=== PATIENT | female | born 1965 | race Caucasian/White ===

== ENCOUNTER → 2020-12-31 00:31 | Outpatient (CLI) | payer OTHER, SELFPAY | PROVIDERS: PCP Family Medicine; Visit Provider Internal Medicine Cardiovascular Disease | DX: Z01.812 Encounter for preprocedural laboratory examination (principal); Z20.822 Contact with and (suspected) exposure to COVID-19 | CPT/HCPCS: 99199; C9803; U0003; U0005 ==

== ENCOUNTER 2021-01-03 01:21 | Day surgery (SDC) | payer OTHER, SELFPAY ==
[2021-01-02 13:14] VITALS: BMI 40.4
[2021-01-03] VITALS (10 sets, daily range): BP systolic 120–209; BP diastolic 64–101; PULSE 68–112; RESP 12–17; TEMP 36.1–36.7; O2SAT 92–99; BMI 41.5
[2021-01-03 07:58] LABS: EDCOVIDSCREEN Negative (Negative)
--- NOTE | 2021-01-03 08:48 | WPDMODSED ---
Moderate Sedation Note-Pt Data Patient Data Diagnosis: Aortic stenosis Present Complaint: Aortic stenosis Procedure to be performed/Plan: Multiplanar transesophageal echocardiography with pulse wave and color flow Doppler Agitated saline study Moderate sedation Allergies Allergy/AdvReac Type Severity Reaction Status Date / Time No Known Allergies Allergy Mild Verified 01/03/21 08:28 Home Medications Medication Instructions Recorded Confirmed Type pen needle, diabetic 32 gauge x #100 each 01/09/20 Rx 5/32 dicyclomine 20 mg tablet 20 mg PO TID PRN #60 tablet 06/29/20 01/02/21 Rx cholestyramine-aspartame 4 gram 4 g PO DAILY #60 ea 07/22/20 01/02/21 Rx oral powder for susp in a packet blood sugar diagnostic #100 ea 09/28/20 09/28/20 Rx dulaglutide 0.75 mg/0.5 mL 0.75 mg SUBCUT WEEKLY #2 ml 12/07/20 01/02/21 Rx subcutaneous pen injector ferrous sulfate 325 mg (65 mg 325 mg PO .EVERY OTHER DAY tablet 12/07/20 01/02/21 History iron) tablet,delayed release gabapentin 300 mg capsule 300 mg PO DAILY #30 cap 12/24/20 01/02/21 Rx buspirone 5 mg tablet 5 mg PO TID PRN #45 tablet 01/01/21 01/02/21 Rx cetirizine [Zyrtec] 10 mg PO DAILY 01/02/21 01/02/21 History escitalopram oxalate 20 mg tablet 20 mg PO DAILY #90 tablet 01/02/21 01/02/21 Rx insulin glargine 100 unit/mL (3 70 unit SUB-Q QPM #72 ml 01/02/21 01/02/21 Rx mL) subcutaneous pen lansoprazole [Prevacid] 15 mg PO DAILY 01/02/21 01/02/21 History losartan 100 mg tablet 100 mg PO DAILY #90 tablet 01/02/21 01/02/21 Rx metoprolol succinate 25 mg 50 mg PO .HS #180 tablet 01/02/21 01/02/21 Rx tablet,extended release 24 hr Sedation/Anesthesia: No previous sedation/anesthesia problems (including family history). [facility] Past Medical History Medical History Anemia Diabetes HLD (hyperlipidemia) Hypertension Normal colonoscopy (~2013) Surgical History Surgical History H/O section Family History Family History Mother Hypertension Family history of coronary artery disease Father Family history of diabetes mellitus in first degree relative Social History Social History Smoking status: Never smoker Second hand tobacco smoke exposure: No Alcohol intake: never Substance use: never Substance use type: does not use Living arrangements: with family Gender identity (if verbalized by the patient): Female Spiritual care concerns: No Mod Sed Physical Exam Physical Exam Pre Procedural Exam: Normal: Appearance, Eyes, Ears, Nose, Neck, Throat, Airway, Lungs, Heart Size, Heart Rate, Heart Rhythm, Neuro Exam, Extremities and Skin Hours since solid foods: 12 Hours since liquid intake: 12 Internal Medicine - PN: Obj Da Vital Signs Vital Signs: Vital Signs - 24 hr 01/03/21 08:20 Temperature 36.7 C Pulse Rate 76 Respiratory Rate 16 Blood Pressure 160/87 H Pulse Oximetry 97 Labs Labs: Laboratory Results - last 24 hr 01/03/21 07:35 SARS-CoV-2 IgG/IgM Ag?Rapid Negative ASA Classification/Sedation ASA Classification/Sedation ASA Class: II Emergent: No Risks: Risks, benefits and alternatives explained and patient/family accepted plan for sedation. Patient re-evaluated immediately prior to sedation.
--- NOTE | 2021-01-03 09:06 | WPDTEECHO ---
BABITA TransEsophageal Echocardiogram Date of procedure: 01/03/21 Procedure Type: 1. Multiplanar transesophageal echocardiography with color-flow and pulse wave Doppler 2. Agitated saline study 3. Moderate sedation Diagnosis: Aortic stenosis Indications: Aortic stenosis Image Quality: Good Findings: After discussing the risks, benefits alternatives of the procedure the patient agreed both via verbal and written informed consent. Risks discussed include esophageal rupture perforation, adverse reaction to anesthesia. Bleeding, pain, infection were also discussed as well as risk of . After establishing continuous ekg monitor tech, pulse oxygenation and serial blood pressure assessments and after time-out, procedure was initiated. Procedure start time 8:52 a.m. procedure stop time 9:05 a.m. Complications: None Blood loss: None Medications given: Hurricaine spray to hypopharynx x2 for topical anesthetic. 3 mg of Versed and 50 mcg of fentanyl given in divided dosages. 5 mg of metoprolol IV x1 also given for elevated blood pressure Medications were administered and patient was monitored by Eva Jay RN Findings: Normal left ventricular size and function ejection fraction 55-60%. Mild left atrial enlargement. Normal right ventricular size and function. Normal right atrial size. Atrial septum is intact without color flow or agitated saline evidence of shunting. Left atrial appendage is normal without thrombus. Pulsed wave Velocities of 70 centimeters/second. There is no pericardial effusion. The aortic root is normal in size. The aortic valve is trileaflet and mildly stenotic with planimetered valve area between 1.5 and 1.8 centimeter squared. There is trivial aortic insufficiency. The mitral valve is normal with [id number] mitral regurgitation. Pulmonic valve is normal with trivial pulmonic insufficiency. Tricuspid valve is normal with mild tricuspid regurgitation. Conclusions: 1. Normal left ventricular size and function ejection fraction 55-60% 2. Mild left atrial enlargement 3. Intact atrial septum with negative bubble study 4. Mild (to at most moderate) aortic stenosis 5. Mild to moderate mitral regurgitation 6. Moderate sedation
[2021-01-03 09:15] LABS: Glucose Point of Care 255 mg/dl (65-105)
--- NOTE | 2021-01-03 11:43 | SUR.PHASEII ---
1115 D/C instructions were delayed d/t IT issues with the printer, once received they were reviewed with patient and pts , questions answered, IV was d/c'd, cath intact, pressure applied. Pt transported via wheelchair to [facility] where her drove her home in a private vehicle.
== END 2021-01-03 11:20 | disposition home or self-care (01) ==
PROVIDERS: PCP Family Medicine; Visit Provider Internal Medicine Cardiovascular Disease
PROC: (CPT 93312; principal; 2021-01-03 08:30)
DX: I35.0 Nonrheumatic aortic (valve) stenosis (principal); I34.0 Nonrheumatic mitral (valve) insufficiency; D64.9 Anemia, unspecified; E11.9 Type 2 diabetes mellitus without complications; E78.5 Hyperlipidemia, unspecified; I10 Essential (primary) hypertension; Z79.4 Long term (current) use of insulin; Z20.822 Contact with and (suspected) exposure to COVID-19
CPT/HCPCS: 36415; 82948; 87426; 93312; 93320; 93325; C9803; J2250; J3010; J7040

== ENCOUNTER → 2021-01-29 01:49 | Outpatient (CLI) | payer OTHER, SELFPAY ==
[2021-01-29 17:52] LABS: SARS-CoV-2 RNA PCR Negative
== END ==
PROVIDERS: Internal Medicine Critical Care Medicine; PCP Family Medicine; Visit Provider Specialist
DX: Z01.812 Encounter for preprocedural laboratory examination (principal); Z20.822 Contact with and (suspected) exposure to COVID-19
CPT/HCPCS: C9803; U0003; U0005

== ENCOUNTER 2021-02-01 01:26 | Day surgery (SDC) | payer OTHER, SELFPAY ==
[2021-01-31 15:50] VITALS: BMI 40.7
[2021-02-01] VITALS (8 sets, daily range): BP systolic 129–153; BP diastolic 57–90; PULSE 65–82; RESP 13–16; TEMP 36.1–36.3; O2SAT 91–100; BMI 42.1
[2021-02-01 07:50] LABS: Basophils Percent Auto 0.4 % (0.2-1.2); Eosinophils Absolute Auto 0.3 K/mm3 (0-0.3); Hematocrit 40.2 % (37.0-47.0); Hemoglobin 12.9 g/dL (12.0-15.0); Immature Granulocyte Absolute 0.05 K/mm3 (0.00-0.031); Immature Granulocyte Percent A 0.5 % (0-0.5); Lymphocytes Absolute Auto 1.39 K/mm3 (0.9-3.2); Lymphocytes Percent Auto 15.3 % (18.3-44.2); Mean Corpuscular HGB Conc 32.1 g/dl (32-36); Mean Corpuscular Hemoglobin 26.7 pg (26-34); Mean Corpuscular Volume 83.1 fl (80-100); Mean Platelet Volume 11.5 fl (7.4-10.4); Monocytes Absolute Auto 0.6 K/mm3 (0.1-0.6); Monocytes Percent Auto 6.9 % (2.6-8.5); Neutrophils Absolute Auto 6.7 K/mm3 (1.3-6.7); Neutrophils Percent Auto 73.9 % (45.5-73.1); Platelet Count Result 264 k/mm3 (150-375); Red Blood Count 4.84 M/mm3 (4.2-5.4); Red Cell Distribution Width 14.5 % (11.5-14.5); White Blood Count 9.1 K/mm3 (4.5-10.0)
[2021-02-01 08:06] LABS: INR 0.9; Prothrombin Time 11.8 Seconds (11.1-14.7)
[2021-02-01 08:08] LABS: Anion Gap 9 mmol/L (8-16); Blood Urea Nitrogen 18 mg/dL (7-17); Calcium 9.2 mg/dL (8.4-10.2); Carbon Dioxide 27 mmol/L (22-30); Chloride 101 mmol/L (98-107); Estimated CRCL calculation 82 ml/min; Estimated Glomerular Filt Rate > 60; Glucose 313 mg/dL (65-110); Potassium 3.9 mmol/L (3.4-5.0); Sodium 137 mmol/L (137-145)
--- NOTE | 2021-02-01 11:04 | WPDMODSED ---
Moderate Sedation Note-Pt Data Patient Data Diagnosis: Mild aortic stenosis abnormal nuclear stress test morbid obesity ventricular arrhythmias Present Complaint: no complaints this morning Procedure to be performed/Plan: left heart catheterization Allergies Allergy/AdvReac Type Severity Reaction Status Date / Time No Known Allergies Allergy Mild Verified 01/03/21 08:28 Home Medications Medication Instructions Recorded Confirmed Type pen needle, diabetic 32 gauge x #100 each 01/09/20 Rx /32 blood sugar diagnostic #100 ea 09/28/20 09/28/20 Rx cetirizine [Zyrtec] 10 mg PO DAILY 01/02/21 01/31/21 History insulin glargine 100 unit/mL (3 70 unit SUB-Q QPM #72 ml 01/02/21 01/31/21 Rx mL) subcutaneous pen lansoprazole [Prevacid] 15 mg PO DAILY 01/02/21 01/31/21 History losartan 100 mg tablet 100 mg PO DAILY #90 tablet 01/28/21 01/31/21 Rx metoprolol succinate 25 mg 50 mg PO .HS #180 tablet 01/28/21 01/31/21 Rx tablet,extended release 24 hr buspirone 5 mg PO BID 01/31/21 01/31/21 History escitalopram oxalate 20 mg PO HS 01/31/21 01/31/21 History gabapentin 300 mg PO HS 01/31/21 01/31/21 History Current Medications: Active Medications Sodium Chloride (Normal Saline Iv) 500 mls @ 100 mls/hr IV CONT .Q5H RED Sedation/Anesthesia: No previous sedation/anesthesia problems (including family history). [facility] Past Medical History Medical History Anemia Diabetes HLD (hyperlipidemia) Hypertension Normal colonoscopy (~2013) Surgical History Surgical History H/O section Family History Family History Mother Hypertension Family history of coronary artery disease Father Family history of diabetes mellitus in first degree relative Social History Social History Smoking status: Never smoker Second hand tobacco smoke exposure: No Alcohol intake: never Substance use: never Substance use type: does not use Living arrangements: with family Gender identity (if verbalized by the patient): Female Spiritual care concerns: No Mod Sed Physical Exam Physical Exam Pre Procedural Exam: Normal: Neck, Throat, Airway, Lungs, Heart Size, Heart Rate, Heart Rhythm, Neuro Exam and Extremities and Variation: Appearance ( pleasant obese white female no apparent distress) Hours since solid foods: 12 Hours since liquid intake: 12 Mallampati Classification: class III Internal Medicine - PN: Obj Da Vital Signs Vital Signs: Vital Signs - 24 hr 02/01/21 07:40 Temperature 36.3 C L Pulse Rate 82 Respiratory Rate 16 Blood Pressure 142/90 H Pulse Oximetry 99 Meds/Results Medications: Active Medications Generic Name Dose Route Start Last Admin Trade Name Freq PRN Reason Stop Dose Admin Sodium Chloride 500 mls @ 100 mls/hr 02/01/21 07:00 Normal Saline Iv IV CONT .Q5H RED Labs CBC & Chem 7: 02/01/21 07:33 02/01/21 07:33 Labs: Laboratory Results - last 24 hr 02/01/21 02/01/21 02/01/21 07:33 07:33 07:33 WBC 9.1 RBC 4.84 Hgb 12.9 Hct 40.2 MCV 83.1 MCH 26.7 MCHC 32.1 RDW 14.5 Plt Count 264 MPV 11.5 H Immature Gran % (Auto) 0.5 Neut % (Auto) 73.9 H Lymph % (Auto) 15.3 L [place] % (Auto) 6.9 Eos % (Auto) 3.0 Baso % (Auto) 0.4 Lymph # (Auto) 1.39 [place] # (Auto) 0.6 Eos # (Auto) 0.3 Baso # (Auto) 0.0 Abs Immat Gran (auto) 0.05 H Absolute Neuts (auto) 6.7 Absolute Nucleated RBC 0.0 Nucleated RBC % 0.0 PT 11.8 INR 0.9 Sodium 137 Potassium 3.9 Chloride 101 Carbon Dioxide 27 Anion Gap 9 BUN 18 H Creatinine 0.80 Estim Creat Clear Calc 82 Estimated GFR > 60 Glucose 313 H Calcium 9.2 ASA Classificati
--- NOTE | 2021-02-01 11:51 | WPDCARDPROC ---
Cardiac Cath Procedure Note Date of procedure:: 02/01/21 Performing physician:: Lew Rainey MD Indication:: abnormal nuclear stress test ventricular arrhythmias morbid obesity mild aortic valve stenosis Brief clinical history:: this is a 56-year-old woman recently found to have a cardiac murmur she has been found to have modest aortic valve stenosis. Because of an abnormal nuclear stress test geography has been recommended. She is not reporting any ischemic chest pain Procedure Procedure performed:: a left heart catheterization with left ventriculography and coronary angiography Angio-Seal to right femoral artery Sedation/Medication given:: fentanyl 50 mg Versed 2 mg case start time 11:20 a.m. a case end time 11:47 a.m. sedation provided by Chelly Rios RN, trained observer Access site:: right femoral artery Estimated blood loss:: 20 cc Procedure note:: patient was brought to the cardiac catheterization lab in the postabsorptive state. The right femoral triangle was prepared and draped in the normal fashion. Anesthesia was provided with 1% lidocaine infiltrated locally. Modified Seldinger technique was used to puncture the femoral artery and placed a 5 Belgian vascular sheath. After this left heart catheterization was carried out. I used a 5 Belgian angled pigtail catheter to measure left-sided hemodynamics and inject the left ventriculogram in the PRATT projection. After this a 5 Belgian FL4 catheter was used to engage and inject the left coronary artery in multiple projections. A 5 Belgian JR4 catheter was used to engage and inject the right coronary artery in orthogonal projections. After this the cineangiograms were reviewed and the case was terminated. An angiogram was done of the femoral artery through the sheath after which a 6 Belgian Angio-Seal device was deployed at the puncture site. Hemostasis was not satisfactory as there was mild back bleeding and manual pressure will be held at this point. the patient otherwise had no procedure complications and left the lab animal technician in stable condition with no evidence of a groin hematoma. Findings:: Hemodynamics: Central aortic pressure is 136 over 76 left ventricle 157 over 0 end-diastolic 18. There is approximately 20 mm peak gradient across the aortic valve. Left ventricle: The LV is normal in size all segments appear to contract appropriately the global ejection fraction is 55% by visual estimation the left main coronary artery is widely patent the left anterior descending is a large caliber artery extending down to around the apex the LAD is smooth and angiographically normal in appearance the circumflex is a very large caliber artery giving rise to the marginal branches and the posterolateral circulation. The circumflex is smooth and angiographically normal in appearance the right coronary artery is large in caliber and is dominant to the posterior circulation giving rise to the RPDA but no RPL branches. The right coronary artery is also smooth and angiographically normal in appearance Conclusion:: 1. right coronary dominant circulation with the RCA ending in the RPDA but no angiographic evidence of coronary artery disease. 2. Normal left ventricular systolic function 3. suboptimal hemostatic result following Angio-Seal deployment 4. false-positive stress test presumably because of obesity Lew Rainey MD FACC
--- NOTE | 2021-02-01 13:54 | SUR.PHASEII ---
Patient ambulated up to chair after using the bathroom, no signs of bleeding or hematoma. Will continue to monitor.
== END 2021-02-01 16:08 | disposition home or self-care (01) ==
PROVIDERS: PCP Family Medicine; Visit Provider Specialist
PROC: 4A023N7 Measurement of Cardiac Sampling and Pressure, Left Heart, Percutaneous Approach (ICD-10-PCS; CPT 93452; principal; 2021-02-01 08:30)
DX: I35.0 Nonrheumatic aortic (valve) stenosis (principal); I49.9 Cardiac arrhythmia, unspecified; R94.39 Abnormal result of other cardiovascular function study; D64.9 Anemia, unspecified; E11.9 Type 2 diabetes mellitus without complications; E78.5 Hyperlipidemia, unspecified; I10 Essential (primary) hypertension; E66.01 Morbid (severe) obesity due to excess calories; Z68.41 Body mass index [BMI] 40.0-44.9, adult
CPT/HCPCS: 36415; 80048; 85025; 85610; 93458; C1760; C1769; C1887; C1894; C9803; G0269; J1644; J2250; J3010; J7040; U0003; U0005

== ENCOUNTER → 2021-02-04 02:25 | Outpatient (CLI) | payer OTHER, SELFPAY ==
[2021-02-05 15:38] LABS: SARS-CoV-2 RNA PCR Negative
== END ==
PROVIDERS: PCP Family Medicine; Visit Provider Internal Medicine Critical Care Medicine
DX: Z01.812 Encounter for preprocedural laboratory examination (principal); Z20.822 Contact with and (suspected) exposure to COVID-19
CPT/HCPCS: C9803; U0003; U0005

== ENCOUNTER 2021-02-15 08:37 | Outpatient (CLI) | payer OTHER, SELFPAY ==
--- NOTE | 2021-03-13 16:15 | WPDHOMESLEEP ---
Sleep Study - Home Unattended Date of Study: 02/15/21 Ordering Provider: Neda Wright MD Interpreting Provider: Yuliet Manjarrez MD Home Sleep Study Type: Watch PAT Height: 1.63 m Weight: 106.594 kg Body Mass Index: 40.3 Neck Circumference (inches): 15.25 [place]: 10 Reason for Sleep Study Hypersomnolence Sleep History Taylor Quintero is a 56 year old female with excessive daytime sleepiness. She occasionally snores. She had a BABITA last December with observations that she was not breathing properly. There is a family history of snoring in her mother. she does not awaken from sleep feeling short of breath or awaken at night with heartburn, belching or coughing. Rarely is her snoring loud enough that others notice. She frequently has trouble sleeping with a cold. she really has breathing problems at night observed by others and she rarely sweats excessively at night. She occasionally notices her heart pounding or beating irregularly at night. She occasionally falls asleep during the day but never involuntarily or while driving. She does not have loss of muscle tone with strong emotion. 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 she does not feel paralyzed on waking or falling asleep, and rarely has vivid dreamlike scenes upon awakening or falling asleep. she does not feel afraid to go to sleep. She rarely has nightmares. She frequently remembers her dreams. She does not have racing thoughts. She denies feelings of sadness, depression and rarely has anxiety. She does not have muscular tension. She rarely notices parts of her body jerking. She does not kick at night. She frequently has crawling aching feelings in her legs. She occasionally has leg pain during the night. She denies morning jaw pain. She rarely grinds her teeth during sleep. She is not bothered by pain during the day or awakened by pain at night. She does not wake up feeling stiff in the morning, does not wake up with sore achy muscles and rarely wakes up with pain in the neck and spine. She has headaches and palpitations Normal bedtime is 11:00 p.m. falling asleep quickly waking twice at night to urinate and is able to return to sleep within 5 minutes. She wakes the morning at 6:00 a.m.. On the weekends she goes to bed possibly later and wakes by 8:30 a.m.. She takes naps in the afternoon or evening. A short nap is not refreshing. She feels better in the afternoon compared to the morning. Habits: Never smoked. Caffeine 3 per day. No alcohol or recreational drugs. PMF Past Medical History Medical History (Updated 03/13/21 @ 17:21 by Yuliet Manjarrez MD) Anemia Chronic diarrhea Diabetes Fatigue HLD (hyperlipidemia) Hypertension Normal colonoscopy (~2013) Obesity, morbid, BMI 40.0-49.9 Ventricular tachycardia Surgical History Surgical History H/O section Family History Family History Mother Hypertension Family history of coronary artery disease Father Family history of diabetes mellitus in first degree relative Social History Social History Second hand tobacco smoke exposure: No Alcohol intake: never Substance use: never Substance use type: does not use Gender identity (if verbalized by the patient): Female Spiritual care concerns: No Medications Home Medications Medication Instructions Recorded Confirmed Type pen needle, diabetic 32 gauge x #100 each 01/09/20 Rx blood sugar diagnostic #100 ea 09/28/20 09/28/20 Rx cetirizine [Zyrtec] 10 mg PO DAILY 01/02/21 01/31/21 History insulin glargine 100 unit/mL (3 70 unit SUB-Q QPM #72 ml 01/02/21 01/31/21 Rx mL) subcutaneous pen lansoprazole [Prevacid] 15 mg PO DAILY 01/02/21 01/31/21 History losartan 100 mg tablet 100 mg PO DAILY #90 tablet 07
[2021-03-13 16:19] VITALS: BMI 40.3
== END 2021-02-18 11:46 | disposition home or self-care (01) ==
LOC: ANHCSM 08:39
PROVIDERS: PCP Family Medicine; Visit Provider Family Medicine
DX: G47.33 Obstructive sleep apnea (adult) (pediatric) (principal)
CPT/HCPCS: 95800

== ENCOUNTER 2021-05-24 06:35 | Outpatient (CLI) | payer OTHER, SELFPAY ==
--- NOTE | 2021-06-17 17:27 | WPDSLEEPSTUD ---
Sleep Study Date of Study: 05/24/21 Ordering Provider: Neda Wright MD Interpreting Physician: Yuliet Manjarrez MD Sleep Study Type: CPAP Titration Height: 1.63 m Weight: 106.594 kg Body Mass Index: 40.3 Neck Circumference (inches): 15 [place]: 11 Reason for Sleep Study * Feb 15, 2021 WatchPat Home Sleep Test with an apnea hypopnea index o 21.1 and a central apnea index of 9.2, severe desaturation to 78%, presents for a CPAP titration. Sleep History Taylor Quintero is a 56 year old female with excessive daytime sleepiness. She occasionally snores. She had a BABITA last December with observations that she was not breathing properly. There is a family history of snoring in her mother. She does not awaken from sleep feeling short of breath or awaken at night with heartburn, belching or coughing. Rarely is her snoring loud enough that others notice. She frequently has trouble sleeping with a cold. She rarely has breathing problems at night observed by others and she rarely sweats excessively at night. She occasionally notices her heart pounding or beating irregularly at night. She occasionally falls asleep during the day but never involuntarily or while driving. She does not have loss of muscle tone with strong emotion. 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 She does not feel paralyzed on waking or falling asleep, and rarely has vivid dreamlike scenes upon awakening or falling asleep. she does not feel afraid to go to sleep. She rarely has nightmares. She frequently remembers her dreams. She does not have racing thoughts. She denies feelings of sadness, depression and rarely has anxiety. She does not have muscular tension. She rarely notices parts of her body jerking. She does not kick at night. She frequently has crawling aching feelings in her legs. She occasionally has leg pain during the night. She denies morning jaw pain. She rarely grinds her teeth during sleep. She is not bothered by pain during the day or awakened by pain at night. She does not wake up feeling stiff in the morning, does not wake up with sore achy muscles and rarely wakes up with pain in the neck and spine. She has headaches and palpitations Normal bedtime is 11:00 p.m. falling asleep quickly waking twice at night to urinate and is able to return to sleep within 5 minutes. She wakes the morning at 6:00 a.m.. On the weekends she goes to bed possibly later and wakes by 8:30 a.m.. She takes naps in the afternoon or evening. A short nap is not refreshing. She feels better in the afternoon compared to the morning. Habits: Never smoked. Caffeine 3 per day. No alcohol or recreational drugs. [facility] Past Medical History Medical History Anemia Chronic diarrhea Diabetes Fatigue HLD (hyperlipidemia) Hypertension Normal colonoscopy (~2013) Obesity, morbid, BMI 40.0-49.9 Ventricular tachycardia Surgical History Surgical History H/O section Family History Family History Mother Hypertension Family history of coronary artery disease Father Family history of diabetes mellitus in first degree relative Social History Social History Second hand tobacco smoke exposure: No Alcohol intake: never Substance use: never Substance use type: does not use Gender identity (if verbalized by the patient): Female Spiritual care concerns: No Medications Home Medications Medication Instructions Recorded Confirmed Type pen needle, diabetic 32 gauge x #100 each 01/09/20 06/14/21 Rx 5/32 blood sugar diagnostic #100 ea 09/28/20 06/14/21 Rx cetirizine [Zyrtec] 10 mg PO DAILY 01/02/21 06/14/21 History lansoprazole [Prevacid] 15 mg PO DAILY 01/02/21 06/14/21 History buspirone 5 mg
[2021-06-17 19:43] VITALS: BMI 40.3
== END 2021-05-25 07:27 | disposition home or self-care (01) ==
LOC: ANHCSM 06:35
PROVIDERS: PCP Family Medicine; Visit Provider Family Medicine
DX: G47.33 Obstructive sleep apnea (adult) (pediatric) (principal)
CPT/HCPCS: 95811

== ENCOUNTER 2021-11-07 11:16 | Outpatient (CLI) | payer OTHER, SELFPAY ==
[2021-11-07 16:52] LABS: Alanine Aminotransferase 27 U/L (4-35); Albumin Level 4.4 g/dL (3.5-5.1); Alkaline Phosphatase 111 U/L (38-126); Anion Gap 7 mmol/L (8-16); Aspartate Amino Transferase 76 U/L (14-36); Bilirubin,Total 0.3 mg/dL (0.2-1.3); Blood Urea Nitrogen 12 mg/dL (7-17); Carbon Dioxide 31 mmol/L (22-30); Chloride 100 mmol/L (98-107); Cholesterol 197 mg/dL (0-200); Estimated Glomerular Filt Rate > 60; Glucose 171 mg/dL (65-110); HDL Direct 44 mg/dL; Potassium 4.1 mmol/L (3.4-5.0); Sodium 138 mmol/L (137-145); Triglycerides 172 mg/dL (<150)
[2021-11-07 17:03] LABS: LDL Cholesterol Direct 104 mg/dL
[2021-11-07 19:54] LABS: Creatinine Urine 246.8 mg/dL
[2021-11-07 20:33] LABS: MALB Creatinine Ratio 266.1 mg/g (0-30); Microalbumin Urine Random 656.8 mg/L (0-16.7)
== END 2021-11-07 11:17 | disposition home or self-care (01) ==
LOC: ANHWCLAB 11:20
PROVIDERS: PCP Family Medicine; Visit Provider Internal Medicine Endocrinology, Diabetes & Metabolism
DX: E11.29 Type 2 diabetes mellitus with other diabetic kidney complication (principal); E78.5 Hyperlipidemia, unspecified; R80.9 Proteinuria, unspecified
CPT/HCPCS: 36415; 80053; 80061; 82043; 84443

== ENCOUNTER 2022-04-12 02:06 | Emergency (ER) | payer OTHER, SELFPAY ==
--- NOTE | ~2022-04-12 | XR_ITS ---
EXAMINATION: XR knee RT 3V DATE: 04/12/2022 02:55 INDICATION: Right knee pain. TECHNIQUE: 3 views of right knee were obtained. COMPARISON: Right knee radiographs 05/27/2012 FINDINGS: Bone alignment is normal. No fracture. There is moderate osteoarthritis of medial compartme nt and mild osteoarthritis of lateral and patellofemoral compartments. There is a moderate-sized knee joint effusion. IMPRESSION: 1. Moderate right knee osteoarthritis. 2. Moderate-sized right knee joint effusion. Reviewed, dictated and finalized at location A.
--- NOTE | ~2022-04-12 | XR_ITS ---
EXAMINATION: XR wrist LT min 3V DATE: 04/12/2022 02:55 INDICATION: Left wrist pain. Fall. TECHNIQUE: 4 views of left wrist were obtained. COMPARISON: None. FINDINGS: There is a fracture of palmar aspect of distal radius with involvement of the distal articu lar surface. The volar fracture fragment demonstrates 1 mm volar displacement. There is mild osteoart hritis of triscaphe joint and first carpometacarpal joint. IMPRESSION: 1. Distal radius fracture. Reviewed, dictated and finalized at location A. IMPRESSION: 1. Distal radius fracture.
[2022-04-12 02:13] VITALS: BP 166/84; PULSE 95; RESP 16; TEMP 36.1; O2SAT 100
--- NOTE | 2022-04-12 02:22 | ED.GENADULT ---
HPI - General Adult General Chief complaint: Extremity Injury, Upper Stated complaint: fall with L wrist pain, hand numbness Time Seen by Provider: 04/12/22 02:16 History of Present Illness HPI narrative: Patient is a 57-year-old female here for evaluation of left wrist and right knee pain after a fall today. Patient states that she was walking in the dark when she accidentally tripped on a rock, falling forward onto outstretched hands and on her right knee. She has been ambulatory since the accident but just notes that her knee is sore. She has noted pain in the left wrist and also some tingling sensation in her fingers, although she has been able to move the hand and fingers without issue. Has not taken any pain medicine prior to arrival. States that she was in her usual state of health prior to the fall and denies any preceding dizziness, lightheadedness, headaches, visual changes, chest pain or shortness of breath. Related Data Home Medications Medication Instructions Recorded Confirmed cetirizine 10 mg capsule (Zyrtec) 10 mg PO DAILY 01/02/21 04/15/22 lansoprazole 15 mg capsule,delayed 15 mg PO DAILY 01/02/21 04/15/22 release (Prevacid) amlodipine 5 mg tablet 5 mg PO DAILY 02/11/21 04/15/22 aspirin 81 mg tablet,delayed 81 mg PO DAILY 02/11/21 04/15/22 release (Adult Low Dose Aspirin) omega-3 fatty acids 1,000 mg 2,000 mg PO DAILY 02/11/21 04/15/22 capsule (Fish Oil Concentrate) Allergies Allergy/AdvReac Type Severity Reaction Status Date / Time No Known Allergies Allergy Mild Verified 04/15/22 12:48 Review of Systems Review of Systems: Gen: Denies fevers or chills Eyes: Denies eye pain or visual change ENT: Denies congestion Respiratory: Denies shortness of breath or cough CV: Denies chest pain or palpitations GI: Denies abdominal pain nausea, emesis or diarrhea denies burning, urgency, frequency or hematuria Musculoskeletal: Reports left wrist and right knee pain. Neuro: Denies numbness, tingling, weakness or focal weakness Skin: Denies rash Except as documented, all other systems reviewed and negative [facility] Past Medical History Medical History (Updated 04/15/22 @ 17:50 by Sourav Burgos MD) Anemia Chronic diarrhea Dermatofibroma Diabetes Distal radius fracture, left Fatigue HLD (hyperlipidemia) Hypertension Normal colonoscopy (~2013) Obesity, morbid, BMI 40.0-49.9 Ventricular tachycardia Surgical History Surgical History H/O section Family History Family History Mother Hypertension Family history of coronary artery disease Father Family history of diabetes mellitus in first degree relative Social History Social History Smoking status: Never smoker Second hand tobacco smoke exposure: No Alcohol intake: never Substance use: never Substance use type: does not use Gender identity (if verbalized by the patient): Female Spiritual care concerns: No Exam Narrative: APPEARANCE: Well appearing, no pain in distress, well-nourished. Head: Normocephalic and atraumatic. EYES: PERRLA/EOMI, conjunctivae clear NOSE: No nasal drainage EARS: External ear normal in appearance THROAT: Oropharynx is clear. Mucous membranes are moist. NECK: Supple. No adenopathy, no masses. RESPIRATORY: Airway patent, respirations nonlabored. Clear to auscultation bilaterally, no rales, rhonchi, wheezing. CARDIOVASCULAR: 2+ radial pulses bilaterally. Brisk capillary refill. Systolic ejection murmur heard. Regular rate and rhythm without rubs, or gallops. ABDOMINAL: Normoactive bowel sounds. Soft, nontender, nondistended. No rebound tenderness or guarding. MUSCULOSKELETAL: Patient has a contusion over the medial aspect of the right knee. She has bony tenderness palpation on the right patella. She is full range of motion i
--- NOTE | 2022-04-12 02:46 | PC.NURSE ---
Patient in xray at this time.
[2022-04-12] MEDS: ACETAMINOPHEN 325 MG TABLET 650 MG PO (02:53)
[2022-04-12] MEDS: IBUPROFEN 600 MG TABLET PO (02:53)
== END 2022-04-12 03:36 | disposition home or self-care (01) ==
PROVIDERS: Emergency Provider Emergency Medicine; PCP Family Medicine
DX: S52.502A Unspecified fracture of the lower end of left radius, initial encounter for closed fracture (principal); S89.91XA Unspecified injury of right lower leg, initial encounter; E11.9 Type 2 diabetes mellitus without complications; E78.5 Hyperlipidemia, unspecified; I10 Essential (primary) hypertension; Z86.2 Personal history of diseases of the blood and blood-forming organs and certain disorders involving the immune mechanism; E66.01 Morbid (severe) obesity due to excess calories; Z68.35 Body mass index [BMI] 35.0-35.9, adult; Z79.82 Long term (current) use of aspirin; Z79.85 Long-term (current) use of injectable non-insulin antidiabetic drugs; Z79.4 Long term (current) use of insulin; W18.09XA Striking against other object with subsequent fall, initial encounter; Z79.84 Long term (current) use of oral hypoglycemic drugs
CPT/HCPCS: 29125; 73110; 73562; 99284; A9270

== ENCOUNTER 2022-09-29 09:47 | Outpatient (CLI) | payer OTHER, SELFPAY ==
[2022-09-29 17:15] LABS: Alanine Aminotransferase 28 U/L (6-35); Albumin Level 4.4 g/dL (3.5-5.1); Alkaline Phosphatase 120 U/L (38-126); Anion Gap 7 mmol/L (8-16); Aspartate Amino Transferase 49 U/L (14-36); Bilirubin,Total 0.6 mg/dL (0.2-1.3); Blood Urea Nitrogen 21 mg/dL (7-17); Calcium 9.3 mg/dL (8.4-10.2); Carbon Dioxide 28 mmol/L (22-30); Chloride 102 mmol/L (98-107); Cholesterol 211 mg/dL (0-200); Estimated Glomerular Filt Rate > 60; Glucose 161 mg/dL (65-110); HDL Direct 45 mg/dL; Potassium 4.5 mmol/L (3.4-5.0); Sodium 137 mmol/L (137-145); Triglycerides 204 mg/dL (<150)
[2022-09-29 17:26] LABS: LDL Cholesterol Direct 112 mg/dL
[2022-09-29 17:37] LABS: Creatinine Urine 85.6 mg/dL
[2022-09-29 17:40] LABS: MALB Creatinine Ratio 144.4 mg/g (0-30); Microalbumin Urine Random 123.6 mg/L (0-16.7)
== END 2022-09-29 09:48 | disposition home or self-care (01) ==
LOC: ANHWCLAB 09:48
PROVIDERS: PCP Family Medicine; Visit Provider Internal Medicine Endocrinology, Diabetes & Metabolism
DX: R80.9 Proteinuria, unspecified (principal); E78.5 Hyperlipidemia, unspecified; E11.29 Type 2 diabetes mellitus with other diabetic kidney complication; E11.65 Type 2 diabetes mellitus with hyperglycemia; Z79.4 Long term (current) use of insulin; Z71.3 Dietary counseling and surveillance
CPT/HCPCS: 36415; 80053; 80061; 82043; 82607; 84443

== ENCOUNTER 2023-10-08 11:27 | Outpatient (CLI) | payer OTHER, SELFPAY ==
--- NOTE | ~2023-10-08 | XR_ITS ---
EXAM: XR wrist RT min 3V DATE: 10/08/2023 11:45 HISTORY: S69.90XA - Unspecified injury of unspecified wrist, hand ... . COMPARISON: None available. FINDINGS: Normal mineralization. No fracture or dislocation. No lytic or blastic lesion. Mild scatte red degenerative change. Subchondral cysts in the lunate. No erosion or periosteal change. Soft tissu es within normal limits. IMPRESSION: No acute osseous finding in the right wrist. Reviewed, dictated and finalized at location K.
== END 2023-10-08 11:28 | disposition home or self-care (01) ==
PROVIDERS: PCP Family Medicine; Visit Provider Physician Assistant
DX: S69.90XA Unspecified injury of unspecified wrist, hand and finger(s), initial encounter (principal)
CPT/HCPCS: 73110

== ENCOUNTER 2024-10-20 00:51 | Day surgery (SDC) | payer OTHER, SELFPAY ==
[2024-10-18 14:08] VITALS: BMI 37.4
--- OUTSIDE RECORDS SUMMARY | 2024-10-20 00:54 | XMS_ITS | Referral Summary ---
Author Organization [facility] Address [address] [place] [id number] Care Team Providers Care Peoplesoft Analyst Name Role Phone Neda Wright MD Primary Care Provider [phone] Encounters Date Type Department Care Team Description 09/21/2024 9:30 AM CDT Office Visit [facility] Cardiology [address] [facility] [address] [place] [address] Murphy Jin MD Hypertension associated with diabetes (HCC) (Primary Dx); Hyperlipidemia associated with type 2 diabetes mellitus (HCC); Pulmonary hypertension (HCC); Nonrheumatic aortic valve stenosis; Severe obesity (HCC) from Last 3 Months Allergies No known active allergies Medications gabapentin (NEURONTIN) 300 mg capsule Take by mouth daily 1 Active escitalopram (LEXAPRO) 20 mg tablet 1 Active losartan (COZAAR) 100 mg tablet Take 0.5 tablets (50 mg total) by mouth 2 (two) times a day 1 Active metoprolol XL (TOPROL-XL) 25 mg extended release tablet 2 tablets (50 mg total) 1 Active cetirizine (ZyrTEC) 10 mg tablet Take 1 tablet (10 mg total) by mouth daily Active lansoprazole (PREVACID) 15 mg capsule Take 1 capsule (15 mg total) by mouth daily Active omega-3 fatty acids 1,000 mg capsule Take 2,000 mcg by mouth Active aspirin 81 mg enteric coated tabletIndicatio ns:Dyspnea, unspecified type Take 1 tablet (81 mg total) by mouth daily 30 tablet 11 1 Active Ozempic 1 mg/dose (4 mg/3 mL) pen injector injection 2 Active TOUJEO MAX 300 unit/mL (3 mL) pen for injection 2 Active Farxiga 10 mg tablet Take 1 tablet (10 mg total) by mouth daily 4 Active ezetimibe-atorv astatin 10-10 mg tablet Take 1 tablet by mouth daily Active atorvastatin (LIPITOR) 40 mg tabletIndicatio ns:Hyperlipidem ia associated with type 2 diabetes mellitus (HCC) TAKE 1 TABLET DAILY 90 tablet 3 5 Active amLODIPine (NORVASC) 10 mg tabletIndicatio ns:Hypertension associated with diabetes (HCC) TAKE 1 TABLET DAILY 90 tablet 3 5 Active amLODIPine (NORVASC) 10 mg tabletIndicatio ns:Hypertension associated with diabetes (HCC) TAKE 1 TABLET DAILY 90 tablet 2 4 025 Discontinued Active Problems Problem Noted Date Diagnosed Date Severe obesity 09/21/2024 Morbid (severe) obesity due to excess calories 0 08/17/2023 JACOB (obstructive sleep apnea) 06/13/2021 Pulmonary hypertension 12/21/2020 Hyperlipidemia associated with type 2 diabetes m ellitus 12/21/2020 Hypertension associated with diabetes 12/21/2020 Lipid screening 12/21/2020 VT (ventricular tachycardia) 12/21/2020 Dyspnea 12/21/2020 History of COVID-19 12/21/2020 Nonrheumatic aortic valve stenosis 12/21/2020 Resolved Problems Problem Noted Date Diagnosed Date Resolved Date Morbid obesity with BMI of 40.0-44.9, adult 12/21/2020 02/09/2023 Social History Tobacco Use Types Packs/Day Years Used Date Smoking Tobacco: Never Smokeless Tobacco: Never Tobacco Cessation:Counseling Given: Not Answered Comments Unknown Sex and Gender Information Value Date Recorded Sex Assigned at Not on file 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 Gender Identity Not on file Sexual Orientation Not on file Last Filed Vital Signs Vital Sign Reading Time Taken Comments Blood Pressure 120/82 09/21/2024 9:25 AM CDT Pulse 78 09/21/2024 9:25 AM CDT Temperature - - Respiratory Rate 15 12/21/2020 2:34 PM CDT Oxygen Saturation 97% 09/21/2024 9:25 AM CDT Inhaled Oxygen Concentration - - Weight 102.1 kg (225 lb) 09/21/2024 9:25 AM CDT Height 162.6 cm (5' 4 ) 09/21/2024 9:25 AM CDT Body Mass Index 38.62 09/21/2024 9:25 AM CDT Plan of Treatment Not on file Procedures Procedure Name Priority Date/Time Associated Diagnosis Comments POCT LIPID PANEL Routine 09/21/2024 8:28 AM CDT Hyperlipidemia associated with type 2 diabetes mellitus (HCC) EGFR Routine 12/21/2020 4:26 PM CDT Dyspnea, unspecified type VT (ventricular tachycardia) (HCC) from Last 3 Months or Most Recently Relevant to Health Maintenance Results * POCT lipid panel (09/21/2024 8:28 AM CDT) Cholesterol, POC 150 mg/dL HDL, POC 48 mg/dL Triglycerides, POC 208 mg/dL LDL Cholesterol POC 60 mg/dL Chol/HDL Ratio, POC 1.2 Non-HDL Cholesterol, POC 101 mg/dL Cholesterol Total, POC 150 mg/dL Capillary blood 09/21/2024 8 :28 AM CDT Murphy Jin MD POINT OF CARE TEST ORDERA BLES Final Result * eGFR (12/21/2020 4:26 PM CDT) eGFR 87 mL/min/1.7 3 m2 [facility] Comment: Interpretive Data Reference Interval Normal >/= 90 mL/min/1.73m2 Mildly decreased* 60 - 89 mL/min/1.73m2 Mildly to moderately decreased 45 - 59 mL/min/1.73m2 Moderately to severely decreased 30 - 44 mL/min/1.73m2 Severely decreased 15 - 29 mL/min/1.73m2 Kidney Failure < 15 mL/min/1.73m2 *Relative to young adult level Estimated glomerular filtration rate is determined by the CKD-EPI equation recommended by the National Kidney Foundation (KDIGO 2012 Clinical Practice Guideline for the Evaluation and Management of Chronic Kidney Disease. Kidney Intnl Suppl Jul 2012;3:1). The CKD-EPI equation should not be used for patients with unstable renal function and has not been validated in children and those over 70. Current interpretive data was last reviewed 2020 Testing performed by: [facility], [facility] [address], [place] [address] Blood specimen (specimen) 12/21/2020 4:26 PM CDT 12/21/2020 4:26 PM CDT Murphy Jin MD LAB BLOOD ORDERABLES Vani tabor Result Performing Organization Address City/State/[facility] Co de Phone Number [facility] [phone] [address] Department [place] [address] from Last 3 Months or Most Recently Relevant to Health Maintenance Insurance [facility] CHOICE PLUS [facility] CHOICE PLUS Care Teams Peoplesoft Analyst Relationship Specialty Start Date End Date Neda Wright MD PCP - General Family Medicine 10/12/20
--- OUTSIDE RECORDS SUMMARY | 2024-10-20 00:54 | XMS_ITS | Clinical Summary ---
Author Organization [facility] Address [address] [place] [id number] Care Team Providers Care Legal Librarian Name Role Phone Neda Wright MD Primary Care Provider Allergies No known active allergies Medications gabapentin [...] with BMI of 40.0-44.9, adult 12/21/2020 02/09/2023 Encounters Date Type Department Care Team Description 09/21/2024 9:30 AM CDT Office Visit [facility] Cardiology [address] [facility] [address] [place] [address] Murphy Jin MD Hypertension associated with diabetes (HCC) (Primary Dx); Hyperlipidemia associated with type 2 diabetes mellitus (HCC); Pulmonary hypertension (HCC); Nonrheumatic aortic valve stenosis; Severe obesity (HCC) from Last 3 Months Surgical History Surgery Date Site/Laterality Comments SECTION 01/29/1984, 09/19/1986 Medical History Medical History Date Comments Hypertension Heart murmur Arrhythmia Hyperlipidemia Diabetes mellitus (HCC) GERD (gastroesophageal reflux disease) Anxiety Arthritis Asthma Family History Medical History Relation Name Comments Diabetes Brother 1 Wilner Kidney failure Brother 1 Wilner Coronary artery disease Brother 2 Hypertension Brother 3 Bill Coronary artery disease Father Dad Diabetes Father Dad Heart disease Father Dad Hypertension Father Dad Obesity Father Dad Diabetes Father's Sister Catina Hypertension Father's Sister Catina Obesity Father's Sister Catina Stroke Maternal Grandfather Kenny Cancer Maternal Grandmother Lesley Diabetes Mother Mom Heart disease Mother Mom Hypertension Mother Mom Kidney failure Mother Mom Obesity Mother Mom Heart disease Mother's Brother 1 Sajan Hypertension Mother's Brother 1 Sajan Heart disease Mother's Brother 2 [place] Hypertension Mother's Brother 2 [place] Diabetes Mother's Sister 1 Polina Obesity Mother's Sister 2 Alexandra Hypertension Sister Leigh Obesity Sister Leigh Relation Name Status Comments Brother 1 Wilner Alive Brother 2 Alive Brother 3 Bill Father Dad Father's Sister Catina Maternal Grandfather Kenny Maternal Grandmother Lesley Mother Mom Mother's Brother 1 Sajan Mother's Brother 2 [place] Mother's Sister 1 Polina Mother's Sister 2 Alexandra Sister Leigh Social History Tobacco Use Types Packs/Day Years Used Date Smoking Tobacco: Never Smokeless Tobacco: Never Tobacco Cessation:Counseling Given: Not Answered Comments Unknown Sex and Gender Information Value Date Recorded Sex Assigned at Not on file 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 Gender Identity Not on file Sexual Orientation Not on file Obstetrics History Last Filed Vital Signs Vital Sign Reading [...] 09/21/2024 9:25 AM CDT Plan of Treatment Health Maintenance Due Date Last Done Comments Albumin Creatinine Ratio, Urine 1963 Breast Cancer Screening-Mammogram 1963 Cervical Cancer Screening 1963 Colon Cancer Screening-Colonoscopy 1963 Depression Screening 1963 Hemoglobin A1C 1963 Hepatitis C Screening 1963 Dilated Eye Exam 1963 Foot Exam 1963 Hepatitis B Screening 1981 Regular Well Visit/Exam 18-64 1981 Pneumococcal vaccine <65 (1 of 2 - PCV) 1982 DTaP/Tdap/Td Vaccine (5 - Tdap) 06/25/1995 06/24/1995, 04/10/1975, 03/06/1971, Additional history exists Zoster Vaccine (2 of 2) 06/21/2020 04/26/2020 eGFR 12/21/2021 12/21/2020 Influenza Vaccine (Season Ended) 2025 04/26/20 20, 06/10/2019 Lipid Panel 09/21/2025 09/21/2024, 02/10, 02/09/2023, Additional history exists Procedures Procedure Name Priority Date/Time Associated Diagnosis [...] Capillary blood 09/21/2024 8 :28 AM CDT us Murphy Jin MD POINT OF CARE TEST [...] was last reviewed 2020 Testing performed by: [facility], [facility] [address], [place] [address] Blood specimen (specimen) 12/21/2020 4:26 PM CDT 12/21/2020 4:26 PM CDT Murphy Jin MD LAB BLOOD ORDERABLES Vani tabor Result Performing Organization Address City/State/[place] Co de Phone Number [facility] [phone] [address] Department [place] [address] from Last 3 Months or Most Recently Relevant to Health Maintenance Insurance [facility] [place] [address] [facility] CHO[employer] PLUS Care Teams Legal Librarian Relationship Specialty Start Date End Date Neda Wright MD PCP - General Family Medicine 10/12/20
--- OUTSIDE RECORDS SUMMARY | 2024-10-20 00:54 | XMS_ITS | Clinical Summary ---
Author Organization [facility] Address [address] [place] [id number] Care Team Providers Care Accounting Bookkeeper Name Role Phone Unavailable Primary Care Provider Unavailabl e Social History Tobacco Use Types Packs/Day Years Used Date Smoking Tobacco: Never Assessed Comments Unknown Sex and Gender Information Value Date Recorded Sex Assigned at Not on file Legal Sex Female 5:21 PM CDT Gender Identity Not on file Sexual Orientation Not on file Plan of Treatment Health Maintenance Due Date Last Done Comments Cervical Cancer Screening Pa p Smear (Age 30 to 64) Every 3 Years 1963 Colorectal Cancer Screening Colonoscopy (10 Years) 1963 Annual Physical 1966 Hepatitis C 1981 DTaP, Tdap and Td Vaccines ( 1 - Tdap) 1982 Cervical Cancer Screening Pa p with HPV Testing (Age 30 to 64) Every 5 Years 1993 Cervical Cancer Screening with HPV 1993 Mammogram Screening 2003 Zoster Vaccines (1 of 2) 2013 COVID-19 Vaccine ( - 2023-2 5 season) 2024 RSV Immunization or 60+ Years (1 - 1-dose 75+ series) 2038 Meningococcal B Vaccine Aged Out No l onger eligible based on patient's age to complete this topic Meningococcal Vaccine Aged Out No vitaliy moon eligible based on patient's age to complete this topic Pneumococcal Vaccine: Pediat rics (0 to 5 Years) and At-Risk Patients (6 to 64 Years) Aged Out No longer eligible b ased on patient's age to complete this topic RSV Immunizations Under 20 Months Aged Out No longer eligible based on patient's age to complete this topic
[2024-10-20 09:50] VITALS: BP 147/95; PULSE 98; RESP 18; TEMP 36.3; O2SAT 99
[2024-10-20 09:53] LABS: Glucose Point of Care 190 mg/dl (65-105)
[2024-10-20] MEDS: LACTATED RINGERS 1,000 ML 150 ML IV CONT (10:03)
--- NOTE | 2024-10-20 10:06 | P.PNAN_ITS ---
Anes - Initial Pre Proc Eval Procedure: Operation Date: 10/20/24 11:00 Proposed Procedures p Screening Colonoscopy - Jaden Sanchez MD Date/Time: 10/20/24 10:06 Surgeon: Jaden Sanchez MD Pre Op Diagnosis: Encounter for screening for malignant neoplasm of Patient Data Age: 59 Gender: F Height: 1.63 m Weight: 98.2 kg Last Vital Signs Temp 97.4 F L 10/20/24 09:50 Pulse 98 10/20/24 09:50 Resp 18 10/20/24 09:50 BP 147/95 H 10/20/24 09:50 Pulse Ox 99 10/20/24 09:50 O2 Del Method Room Air 10/20/24 09:50 Allergies Allergy/AdvReac Type Severity Reaction Status Date / Time No Known Allergies Allergy Mild Verified 10/20/24 09:48 Home Medications ?Medication ?Instructions ?Recorded ?Confirmed ?Type blood sugar diagnostic (Accu-Chek #100 ea 09/28/20 10/03/24 Rx Sydney Plus test strips) cetirizine 10 mg capsule (Zyrtec) 10 mg PO DAILY 01/02/21 10/20/24 History lansoprazole 15 mg capsule,delayed 15 mg PO DAILY 01/02/21 10/20/24 History release (Prevacid) amlodipine 5 mg tablet 5 mg PO DAILY 02/11/21 10/20/24 History aspirin 81 mg tablet,delayed 81 mg PO DAILY 02/11/21 10/20/24 History release (Adult Low Dose Aspirin) omega-3 fatty acids 1,000 mg 2,000 mg PO DAILY 02/11/21 10/20/24 History capsule (Fish Oil Concentrate) atorvastatin 80 mg tablet 80 mg PO DAILY #90 tabs 12/23/22 10/20/24 Rx blood-glucose,sports equipment racker,cont #1 ea 12/23/22 10/03/24 Rx (Dexcom G7 Electrical Controls Technician) losartan 100 mg tablet 100 mg PO DAILY #90 tabs 12/23/22 10/20/24 Rx escitalopram oxalate 20 mg tablet 20 mg PO HS #90 tabs 11/30/23 10/20/24 Rx blood-glucose sensor (Dexcom G7 #9 ea 01/04/24 10/03/24 Rx Sensor device) insulin glargine U-300 conc 300 See Rx Instructions .Route 02/16/24 10/20/24 Rx unit/mL (3 mL) subcutaneous pen .COMPLEX #18 mL (Toujeo Max U-300 SoloStar) albuterol sulfate 90 mcg/actuation 1 inh inhalation Q4H PRN shortness 03/01/24 10/20/24 Rx aerosol inhaler of breath or wheezing #3 device gabapentin 300 mg capsule See Rx Instructions .Route 03/31/24 10/20/24 Rx .COMPLEX #90 caps glimepiride 4 mg tablet 4 mg PO BIDWMEAL #180 tabs 05/25/24 10/20/24 Rx metoprolol succinate 25 mg 50 mg (2 x 25 mg) PO .HS #180 tabs 06/03/24 10/20/24 Rx tablet,extended release 24 hr semaglutide 2 mg/dose (8 mg/3 mL) 2 mg (0.75 mL) subcut WEEKLY #9 ea 06/29/24 10/20/24 Rx subcutaneous pen injector dapagliflozin propanediol 10 mg See Rx Instructions .Route 07/28/24 10/20/24 Rx tablet (Farxiga) .COMPLEX #90 tabs metformin 500 mg tablet,extended 1,000 mg (2 x 500 mg) PO BID #360 09/01/24 10/20/24 Rx release 24 hr (Glucophage XR) tabs finerenone 10 mg tablet (Kerendia) 10 mg PO DAILY #90 tabs 09/26/24 10/20/24 Rx ezetimibe 10 mg tablet See Rx Instructions .Route 09/28/24 10/20/24 Rx .COMPLEX #90 tabs pen needle, diabetic 32 gauge x #100 ea 09/28/24 10/03/24 Rx 5/32 Laboratory Tests 10/20/24 09:43 POC Capillary Glucose 190 H mg/dl (65-105) Patient hx anesthesia problems: none Family hx anesthesia problems: none Results Review: All pre-operative results and documents have been reviewed as part of the pre- operative evaluation. [facility] Past Medical History Medical History IBS (irritable bowel syndrome) Distal radius fracture, left Dermatofibroma Hyperlipidemia LDL goal <100 Type 2 diabetes mellitus with hyperglycemia, with long-term current use of insulin PLMD (periodic limb movement disorder) Obstructive sleep apnea (~02/2021) Obesity, morbid, BMI 40.0-49.9 Ventricular tachycardia Heart murmur Anemia Chronic diarrhea Fatigue Hypertension Surgical History Surgical History H/O section Family History Family History Mother Hypertension Family history of coronary artery disease Father Family history of diabetes mellitus in first degree relative Other Arthritis Asthma Depression Diabetes mellitus HLD (hyperlipidemia) Kidney disorder Social History Social History Smoking status: Never smoker Second hand tobacco smoke exposure: No Alcohol intake: never Substance use: never Substance use type: does not use Do You Feel Safe in your Home?: Yes Lack of Transportation: No Lack of Food: Never True Current Housing: I Have Housing Concerned About Future Housing: No Difficulty Paying Gas/Electric Bills: No Difficulty Paying for Meds: No Currently Unemployed: No Education: Master's Degree or Higher Difficulty w/ Childcare or Family Care: No Living arrangements: with family Additional living arrangements comments: with sp Occupation/Education: occupation Gender identity (if verbalized by the patient): Female Spiritual care concerns: No Anes - Eval Final PreProcedure Day of Procedure 10/20/24 10:06 Patient weight: obese Heart: regular rate and rhythm Lungs: clear to auscultation Neurological: alert and oriented Last oral intake: >/= 8 hours ASA classification: III Emergent: no Anesthetic plan: proceed Anesthesia type and monitoring: general GIVS and standard monitoring Results Review: All pre-operative results and documents have been reviewed as part of the pre- operative evaluation. Informed Consent: The patient's anesthetic plan and its attendant risks and benefits were discussed with the patient/family/POA. Questions were solicited and answers provided to the satisfaction of the patient/family/POA.
[2024-10-20 10:41] VITALS: BP 120/53; PULSE 83; RESP 18; O2SAT 97
[2024-10-20 10:51] VITALS: BP 106/58; PULSE 81; RESP 15; O2SAT 99
[2024-10-20 11:01] VITALS: BP 120/59; PULSE 79; RESP 21; O2SAT 98
--- NOTE | 2024-10-20 11:02 | SUR.PHASEII ---
blood glucose per dexcom 144
--- NOTE | 2024-10-21 16:23 | PM.IMHP ---
H&P: [facility] History of Present Illness Date/Time: 10/21/24 16:23 this note corresponds to the procedure performed on 10/20/2024. Chief Complaint: Screening colonoscopy Narrative: This is the patient's 2nd colonoscopy. There are no GI symptoms and there is no family history of colorectal cancer. Review of Systems Review of Systems: All systems reviewed & are unremarkable except as noted in HPI and below PMFSH Past Medical History Medical History IBS (irritable bowel syndrome) Distal radius fracture, left Dermatofibroma Hyperlipidemia LDL goal <100 Type 2 diabetes mellitus with hyperglycemia, with long-term current use of insulin PLMD (periodic limb movement disorder) Obstructive sleep apnea (~02/2021) Obesity, morbid, BMI 40.0-49.9 Ventricular tachycardia Heart murmur Anemia Chronic diarrhea Fatigue Hypertension Surgical History Surgical History H/O section Family History Family History Mother Hypertension Family history of coronary artery disease Father Family history of diabetes mellitus in first degree relative Other Arthritis Asthma Depression Diabetes mellitus HLD (hyperlipidemia) Kidney disorder Social History Social History Smoking status: Never smoker Second hand tobacco smoke exposure: No Alcohol intake: never Substance use: never Substance use type: does not use Do You Feel Safe in your Home?: Yes Lack of Transportation: No Lack of Food: Never True Current Housing: I Have Housing Concerned About Future Housing: No Difficulty Paying Gas/Electric Bills: No Difficulty Paying for Meds: No Currently Unemployed: No Education: Master's Degree or Higher Difficulty w/ Childcare or Family Care: No Living arrangements: with family Additional living arrangements comments: with sp Occupation/Education: occupation Gender identity (if verbalized by the patient): Female Spiritual care concerns: No Meds Home Medications and Allergies Home Medications ?Medication ?Instructions ?Recorded ?Confirmed ?Type blood sugar diagnostic (Accu-Chek #100 ea 09/28/20 10/03/24 Rx Sydney Plus test strips) cetirizine 10 mg capsule (Zyrtec) 10 mg PO DAILY 01/02/21 10/20/24 History lansoprazole 15 mg capsule,delayed 15 mg PO DAILY 01/02/21 10/20/24 History release (Prevacid) amlodipine 5 mg tablet 5 mg PO DAILY 02/11/21 10/20/24 History aspirin 81 mg tablet,delayed 81 mg PO DAILY 02/11/21 10/20/24 History release (Adult Low Dose Aspirin) omega-3 fatty acids 1,000 mg 2,000 mg PO DAILY 02/11/21 10/20/24 History capsule (Fish Oil Concentrate) atorvastatin 80 mg tablet 80 mg PO DAILY #90 tabs 12/23/22 10/20/24 Rx blood-glucose,elastic yarn twister helper,cont #1 ea 12/23/22 10/03/24 Rx (Dexcom G7 Lamp Shade Assembler) losartan 100 mg tablet 100 mg PO DAILY #90 tabs 12/23/22 10/20/24 Rx escitalopram oxalate 20 mg tablet 20 mg PO HS #90 tabs 11/30/23 10/20/24 Rx blood-glucose sensor (Dexcom G7 #9 ea 01/04/24 10/03/24 Rx Sensor device) insulin glargine U-300 conc 300 See Rx Instructions .Route 02/16/24 10/20/24 Rx unit/mL (3 mL) subcutaneous pen .COMPLEX #18 mL (Toujeo Max U-300 SoloStar) albuterol sulfate 90 mcg/actuation 1 inh inhalation Q4H PRN shortness 03/01/24 10/20/24 Rx aerosol inhaler of breath or wheezing #3 device gabapentin 300 mg capsule See Rx Instructions .Route 03/31/24 10/20/24 Rx .COMPLEX #90 caps glimepiride 4 mg tablet 4 mg PO BIDWMEAL #180 tabs 05/25/24 10/20/24 Rx metoprolol succinate 25 mg 50 mg (2 x 25 mg) PO .HS #180 tabs 06/03/24 10/20/24 Rx tablet,extended release 24 hr semaglutide 2 mg/dose (8 mg/3 mL) 2 mg (0.75 mL) subcut WEEKLY #9 ea 06/29/24 10/20/24 Rx subcutaneous pen injector dapagliflozin propanediol 10 mg See Rx Instructions .Route 07/28/24 10/20/24 Rx tablet (Farxiga) .COMPLEX #90 tabs metformin 500 mg tablet,extended 1,000 mg (2 x 500 mg) PO BID #360 09/01/24 10/20/24 Rx release 24 hr (Glucophage XR) tabs finerenone 10 mg tablet (Kerendia) 10 mg PO DAILY #90 tabs 09/26/24 10/20/24 Rx ezetimibe 10 mg tablet See Rx Instructions .Route 09/28/24 10/20/24 Rx .COMPLEX #90 tabs pen needle, diabetic 32 gauge x #100 ea 09/28/24 10/03/24 Rx Allergies Allergy/AdvReac Type Severity Reaction Status Date / Time No Known Allergies Allergy Mild Verified 10/20/24 09:48 Assessment and Plan Assessment and plan (1) Encounter for screening colonoscopy: Code(s): Z12.11 - Encounter for screening for malignant neoplasm of colon Status: Acute Plan The patient is deemed a good candidate for the procedure. Consent signed. Will proceed.
== END 2024-10-20 11:13 | disposition home or self-care (01) ==
PROVIDERS: PCP Family Medicine; Referring Provider Family Medicine; Visit Provider Internal Medicine Gastroenterology
PROC: 0DJD8ZZ Inspection of Lower Intestinal Tract, Via Natural or Artificial Opening Endoscopic (ICD-10-PCS; CPT 45378; principal; 2024-10-20 11:00)
DX: Z12.11 Encounter for screening for malignant neoplasm of colon (principal); D12.3 Benign neoplasm of transverse colon; E78.5 Hyperlipidemia, unspecified; E11.65 Type 2 diabetes mellitus with hyperglycemia; D64.9 Anemia, unspecified; I10 Essential (primary) hypertension; K58.9 Irritable bowel syndrome, unspecified; G47.61 Periodic limb movement disorder; G47.33 Obstructive sleep apnea (adult) (pediatric); R01.1 Cardiac murmur, unspecified; E66.9 Obesity, unspecified; Z68.37 Body mass index [BMI] 37.0-37.9, adult; Z79.4 Long term (current) use of insulin; Z79.82 Long term (current) use of aspirin; Z79.51 Long term (current) use of inhaled steroids; Z79.84 Long term (current) use of oral hypoglycemic drugs; Z79.85 Long-term (current) use of injectable non-insulin antidiabetic drugs; Z98.890 Other specified postprocedural states; Z82.49 Family history of ischemic heart disease and other diseases of the circulatory system
CPT/HCPCS: 45385; 82948; 88305; J2003; J2704; J7120

== ENCOUNTER 2024-11-18 15:31 | Outpatient (CLI) | payer OTHER, SELFPAY ==
--- NOTE | ~2024-11-18 | XR_ITS ---
HISTORY: M25.531 - Pain in right wrist COMPARISON: 10/08/2023 TECHNIQUE: 3 views of the right wrist were performed. FINDINGS: No acute fracture is identified. The carpal arcs are intact. Mild radiocarpal joint space narrowing with sclerosis of the distal radius is present. The remaining visualized joint spaces are otherwise preserved. Degenerative disease at the first carpometacarpal joint space, unchanged. Bone mineralization is age-appropriate. No significant soft tissue swelling is noted. No radiopaque foreign body is identified. IMPRESSION: No acute fracture or dislocation. Degenerative disease. Reviewed, dictated and finalized at location A.
== END 2024-11-18 15:32 | disposition home or self-care (01) ==
LOC: MICIMG 15:32
PROVIDERS: PCP Family Medicine; Visit Provider Family Medicine
DX: M19.031 Primary osteoarthritis, right wrist (principal)
CPT/HCPCS: 73110